=== PATIENT | female | born 1955 | race Caucasian/White ===

== ENCOUNTER 2016-12-14 23:51 | Inpatient (IN) | payer BC ==
[~2016-12-14] VITALS: Ht 165.1 cm; Wt 83.5 kg
[2016-12-15 00:49] LABS: HEMOGLOBIN. 13.4 g/dL (12.0-16.0); MEAN CORPUSCULAR HEMOGLOBIN 30.5 pg (28.0-32.0); MEAN CORPUSCULAR VOLUME 91.2 fL (81.0-99.0); MEAN PLATELET VOLUME 8.9 fl (7.4-10.4); PLATELET 172 x1000/uL (130-400); RED BLOOD CELL COUNT 4.39 mill/uL (4.2-5.4); RED CELL DISTRIBUTION WIDTH 12.8 % (11.6-14.6)
[2016-12-15 00:57] LABS: D-DIMER 0.29 mg/L FEU (<0.50); PROTHROMBIN TIME 10.7 sec (9.4-11.6)
[2016-12-15 01:03] LABS: CARBON DIOXIDE 29 mEq/L (21-32); CHLORIDE 98 mEq/L (98-107); CREATINE KINASE 143 IU/L (26-192); ETHANOL BLOOD < 10 mg/dL; TROPONIN I < 0.02 ng/mL (0.00-0.04)
[2016-12-15 01:19] LABS: ATYPICAL LYMPHOCYTES 1
[2016-12-15 01:20] LABS: PLATELET ESTIMATE NORMAL
[2016-12-15] MEDS ORDERED: SODIUM CHLORIDE 0.9% 500 ML IV ONE (02:22)
[2016-12-15 04:40] VITALS: BP 113/72
[2016-12-15 05:15] VITALS: BP 113/72
[2016-12-15] MEDS ORDERED: NA PHOS,M-B/NA PHOS,DI-BA ENEMA 118ML PR PRN (06:30)
[2016-12-15] MEDS ORDERED: ONDANSETRON HCL 4MG/2ML VIAL IV PRN (06:30)
[2016-12-15] MEDS ORDERED: GUAIFENESIN 200MG/10ML SUGAR FREE UDC PO PRN (06:30)
[2016-12-15] MEDS ORDERED: ACETAMINOPHEN 325MG TABLET PO PRN (06:30)
[2016-12-15] MEDS ORDERED: CLONIDINE 0.1MG TABLET PO PRN (06:30)
[2016-12-15] MEDS ORDERED: DOCUSATE SODIUM 100MG CAPSULE PO PRN (06:30)
[2016-12-15] MEDS ORDERED: NITROGLYCERIN 0.4MG TABLET SL SL PRN (06:30)
[2016-12-15] MEDS ORDERED: MAGNESIUM/ALUMINUM HYDROXIDE/SIMETHICONE 30ML UDC PO PRN (06:30)
[2016-12-15] MEDS ORDERED: IPRATROPIUM/ALBUTEROL 0.5-3(2.5)MG/3ML NEB INH PRN (06:30)
[2016-12-15] MEDS ORDERED: TRAMADOL 50MG TABLET PO PRN (06:30)
[2016-12-15 08:00] VITALS: BP 136/82
[2016-12-15] MEDS: PANTOPRAZOLE SODIUM 40 MG/VIAL IV SCH (09:17)
[2016-12-15] MEDS: ASPIRIN 325MG EC TABLET PO SCH (09:18)
[2016-12-15] MEDS: ENOXAPARIN 40MG/0.4ML SYR SUBCUT SCH (09:19)
[2016-12-15 11:03] LABS: CLARITY URINE CLEAR (CLEAR); COLOR URINE YELLOW (YELLOW); GLUCOSE URINE NEGATIVE (NEGATIVE); KETONES URINE NEGATIVE (NEGATIVE); LEUKOCYTE ESTERASE URINE NEGATIVE (NEGATIVE); NITRITE URINE NEGATIVE (NEGATIVE); OCCULT BLOOD URINE TRACE (NEGATIVE); PROTEIN URINE NEGATIVE (NEGATIVE); SPECIFIC GRAVITY URINE 1.018 (1.005-1.030); UROBILINOGEN URINE 0.2 E.U./dL (0.2-1.0)
[2016-12-15 11:53] LABS: *AMPHETAMINES SCREEN URINE NEGATIVE (NEGATIVE); *BARBITURATES SCREEN URINE NEGATIVE (NEGATIVE); *BENZODIAZEPINES SCREEN URINE NEGATIVE (NEGATIVE); *COCAINE SCREEN URINE NEGATIVE (NEGATIVE); CANNABINOID URINE SCREEN NEGATIVE (NEGATIVE); METHADONE URINE SCREEN NEGATIVE (NEGATIVE); OPIATES URINE SCREEN NEGATIVE (NEGATIVE); PHENCYCLIDINE URINE SCREEN NEGATIVE (NEGATIVE)
[2016-12-15 11:54] VITALS: BP 144/85
[2016-12-15 16:00] VITALS: BP 101/80
[2016-12-15] MEDS ORDERED: LOSA50TA20 PO (16:17)
[2016-12-15] MEDS ORDERED: TRIA1TAB94 PO (16:17)
[2016-12-15 16:28] LABS: CREATINE KINASE 121 IU/L (26-192); CREATINE KINASE MB FRACTION < 0.5 ng/mL (0.5-3.6); TROPONIN I < 0.02 ng/mL (0.00-0.04)
[2016-12-15 20:00] VITALS: BP 134/81
[2016-12-15] MEDS ORDERED: ZOLPIDEM TARTRATE 5MG TABLET PO PRN (21:00)
[2016-12-15 23:28] LABS: CREATINE KINASE 108 IU/L (26-192); TROPONIN I < 0.02 ng/mL (0.00-0.04)
[2016-12-15 23:29] LABS: CREATINE KINASE MB FRACTION < 0.5 ng/mL (0.5-3.6)
[2016-12-16] VITALS: BP 138/83
[2016-12-16 07:54] VITALS: BP 115/86
[2016-12-16] MEDS: ASPIRIN 325MG EC TABLET PO SCH (09:11)
[2016-12-16] MEDS: ENOXAPARIN 40MG/0.4ML SYR SUBCUT SCH (09:11)
[2016-12-16] MEDS: PANTOPRAZOLE SODIUM 40 MG/VIAL IV SCH (09:11)
[2016-12-16 11:28] VITALS: BP 115/86
[2016-12-16 11:51] VITALS: BP 121/77
== END 2016-12-16 13:25 | disposition home or self-care (01) | DRG 312 ==
LOC: ER 23:52 → 6WST 12-15 02:34 → ENRESERV 12-15 02:50
PROVIDERS: ADMIT Internal Medicine; ATTEND Internal Medicine
DX: R55 Syncope and collapse (principal); I10 Essential (primary) hypertension; E78.00 Pure hypercholesterolemia, unspecified; Z98.84 Bariatric surgery status; Z79.82 Long term (current) use of aspirin
CPT/HCPCS: 36415; 70450; 71010; 80053; 80061; 80305; 81001; 82550; 82553; 83036; 83880; 84443; 84484; 85025; 85379; 85610; 87086; 93005; 93970; 96360; 96361; 99285; C9113; G0482; J1650; J7040